=== PATIENT | male | born 1985 | race Caucasian/White ===

== ENCOUNTER 2017-11-08 12:39 | Emergency (ER) | payer OTHER ==
[~2017-11-08] VITALS: Ht 185.4 cm; Wt 77.1 kg
[2017-11-08 12:50] VITALS: BP 123/72
--- NOTE | 2017-11-08 14:40 | RADIOLOGY REPORT ---
EXAMINATION: XR ANKLE, LEFT CLINICAL INFORMATION: Pain. COMPARISON: None TECHNIQUE: AP, lateral, and mortise views of the left ankle. FINDINGS: There is no acute fracture or dislocation. The ankle mortise is congruent. Ankle joint effusion likely present. Lateral soft tissue swelling. IMPRESSION: Lateral soft tissue swelling with ankle joint effusion. No acute fracture or malalignment.
--- NOTE | 2017-11-08 16:20 | ED GENERAL ADULT ---
History of Present Illness General Chief Complaint: Foot or Ankle Injury Stated Complaint: LEFT ANKLE INJURY Source: patient Exam Limitations: no limitations Vital Signs & Intake/Output Vital Signs & Intake/Output Vital Signs Date Time Temp Pulse Resp B/P B/P Pulse O2 O2 Flow FiO2 Mean Ox Delivery Rate 11/08 1542 97.2 11/08 1250 97.2 103 20 123/72 96 Room Air Allergies Coded Allergies: NO KNOWN ALLERGIES (03/16/16) Reconcile Medications Ibuprofen 800 MG TABLET 1 TAB PO TID PRN pain Triage Note: PT TO ED C/O LEFT ANKLE PAIN S/P ROLLING IT THIS AM. PAIN IS WORSE WITH WEIGHT BEARING. DECLINING MEDS IN TRIAGE. PT AMBULATED IN AND OUT OF TRIAGE. NO OBVIOUS DEFORMATY NOTED. Triage Nurses Notes Reviewed? yes Onset: Abrupt Duration: hour(s): Timing: single episode today HPI: 32 y/o male with a h/o bipolar disorder presenting with left ankle pain over the past several hours. Reports he was standing on a cider block and fell off. Landed on inverted ankle. Did not completely fall, was able to catch himself. Denies head strike. No numbness or paresthesias. (Neetu Bucio) Past History Travel History Traveled to [place] past 21 day No Medical History Any Pertinent Medical History? 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 No (Neetu Bucio) Review of Systems Review of Systems Constitutional: Reports: no symptoms. EENTM: Reports: no symptoms. Respiratory: Reports: no symptoms. Cardiovascular: Reports: no symptoms. GI: Reports: no symptoms. Genitourinary: Reports: no symptoms. Musculoskeletal: Reports: see HPI. Skin: Reports: no symptoms. Neurological/Psychological: Reports: no symptoms. Hematologic/Endocrine: Reports: no symptoms. Immunologic/Allergic: Reports: no symptoms. (Neetu Bucio) Physical Exam Physical Exam General Appearance: well developed/nourished, no apparent distress, alert, awake , comfortable Head: atraumatic, normal appearance Eyes: Bilateral: normal appearance. Neck: normal inspection, full range of motion, no midline tenderness Respiratory: normal breath sounds, chest non-tender, lungs clear Cardiovascular: regular rate/rhythm Gastrointestinal: soft, non-tender Back: normal inspection, normal range of motion, no vertebral tenderness Extremities: swelling, tenderness, on exam of the left ankle there is diffuse edema with TTP over the lateral aspect. Decreased ROM. Sensation intact. Decreased motor strength. DP and PT pulses 2+. Able to bear weight and ambulate, but ambulates with a limp favoring the right side. Neurologic/Psych: awake, alert, oriented x 3, normal mood/affect Skin: intact, normal color, warm/dry Core Measures ACS in differential dx? No CVA/TIA Diagnosis: No Sepsis Present: No Sepsis Focused Exam Completed? No (Neetu Bucio) Progress Differential Diagnoses I considered the following diagnoses in my evaluation of the patient: [ankle sprain vs contusion vs fx vs dislocation ] Plan of Care: Orders Procedure Date/time Status Durable Medical Equipment 11/08 1615 Active X-ray unremarkable. Likely with sprain. Placed in air cast. Rx ibuprofen for pain. Counseled on supportive care, will f/u with ortho, given strict return precautions. Initial ED EKG: none (Neetu Bucio) Departure Departure Disposition: HOME OR SELF CARE Condition: Stable Clinical Impression Primary Impression: Left ankle sprain Referrals: Cary HECTOR,Trever Crocker MD,Arely (PCP/Family) Additional Instructions: Wear the air cast for stability. Use ibuprofen as needed for pain. Apply ice to help with swelling. Follow up with orthopedics for re-evaluation. Return to the emergency department for any new or worsening symptoms. Departure Forms: Customer Survey General Discharge Information Prescriptions: Current Visit Scripts Ibuprofen 1 TAB PO TID PRN pain #60 TAB (Neetu Bucio) PA/PURCHASING DEPARTMENT CLERK Co-Sign Statement Statement: ED Attending supervision documentation- I saw and evaluated the patient. I have also reviewed all the pertinent lab results and diagnostic results. I agree with the findings and the plan of care as documented in the PA's/PURCHASING DEPARTMENT CLERK's documentation. x I have reviewed the ED Record and agree with the PA's/PURCHASING DEPARTMENT CLERK's documentation. [] Additions or exceptions (if any) to the PAs/PURCHASING DEPARTMENT CLERK's note and plan are summarized below: [] (Clara HECTOR,José Miguel) Critical Care Note Critical Care Note Critical Care Time: non-applicable (Tracey BATISTA,Neetu)
[2017-11-08] MEDS ORDERED: IBUPROFEN800 M1 PO (16:21)
== END 2017-11-08 16:30 ==
LOC: ERH 12:39
DX: S93.402A Sprain of unspecified ligament of left ankle, initial encounter (principal); W17.89XA Other fall from one level to another, initial encounter; Y92.9 Unspecified place or not applicable; Y93.9 Activity, unspecified
CPT/HCPCS: 73610-LT

== ENCOUNTER 2018-01-27 18:36 | Emergency (ER) | payer OTHER ==
[~2018-01-27 18:36] MED LIST: IBUPROFEN800 M1 PO
--- NOTE | 2018-01-27 18:58 | ED AMS/SEIZURE/WEAK/DIZZY ---
History of Present Illness General Chief Complaint: ETOH/Drug Related Complaint Stated Complaint: BIBA OVERDOSE Source: EMS Exam Limitations: unable to give history, clinical condition Vital Signs & Intake/Output Vital Signs & Intake/Output Vital Signs Date Time Temp Pulse Resp B/P B/P Pulse O2 O2 Flow FiO2 Mean Ox Delivery Rate 01/27 2058 98.7 64 20 114/61 100 Room Air 01/27 1854 34 100% 01/27 1839 98.3 78 20 135/86 100 Nasal 6.0L Cannula Allergies Coded Allergies: NO KNOWN ALLERGIES (03/16/16) Triage Note: PT BROUGHT BY FRIEND TO ED S/P OD ON HEROIN. PT UNRESPONSIVE AND IN RESPIRATORY ARREST. EMS THAT WAS OUTSIDE ER GAVE A TOTAL OF 4MG INTRANASAL NARCAN WITH NO EFFECT THEY WERE BRINGING HIM IN WHILE BAGGING. MD TO BEDSIDE IMMIDIATELY. O2 SAT LOW OF 34%. IV ACCESS X2 ESTABLISHED IMMIDIATELY. 2MG IV NARCAN GIVEN WITH IMMIDIATE EFFECT. O2 SAT INCREASED TO 96% ON 6L. PT NOW ALERT AND ORIENTED STATING HE ALSO TOOK XANAX 1MG THIS MORNING. Triage Nurses Notes Reviewed? yes HPI: Patient presents for evaluation of unresponsiveness after use of IV heroin. Patient was dropped off at the emergency department by friends. Fortunately an EMS crew was outside in the administered intranasal Narcan and assisted with bagging the patient until he could be placed in an emergency department treatment room. (Bisi HECTOR,Duarte Clifton) Reconcile Medications Ibuprofen 800 MG TABLET 1 TAB PO TID PRN pain Naloxone HCl (Narcan) 4 MG/ACTUATION SPRAY 1 SPRAY NASB PRN PRN overdose (Clara HECTOR,José Miguel) Past History Travel History Traveled to [place] past 21 day No Medical History Any Pertinent Medical History? 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 No (Bisi HECTOR,Duarte Clifton) Review of Systems Review of Systems Constitutional: Reports: no symptoms. EENTM: Reports: no symptoms. Respiratory: Reports: no symptoms. Cardiovascular: Reports: no symptoms. GI: Reports: no symptoms. Genitourinary: Reports: no symptoms. Musculoskeletal: Reports: no symptoms. Skin: Reports: no symptoms. Neurological/Psychological: Reports: no symptoms. Hematologic/Endocrine: Reports: no symptoms. Immunologic/Allergic: Reports: no symptoms. All Other Systems: Reviewed and Negative Comments Patient unable to provide review of systems (Bisi HECTOR,Duarte Clifton) Physical Exam Physical Exam General Appearance: SEE BELOW Comments: Gen.: Well-nourished, well-developed, unresponsive Head: Normocephalic, atraumatic. Eyes: Small symmetrical pupils Ears: Normal inspection bilaterally Nose: Normal inspection Throat/mouth : Tacky mucosa Neck: Supple, no signs of trauma, no apparent goiter Heart: Regular rate and rhythm, no murmurs rubs or gallops Lungs: No spontaneous respirations, faint air entry with bagged ventilations Chest: Poor chest excursion Back: Normal range of motion Abdomen: Soft, nondistended Extremities: No spontaneous movements Neurologic: Unable to assess Skin: warm and dry Psychiatric: Unable to assess Core Measures ACS in differential dx? No CVA/TIA Diagnosis No Sepsis Present: No Sepsis Focused Exam Completed? No (Bisi HECTOR,Duarte Clifton) Progress Differential Diagnosis: alcohol intoxication, dehydration, electrolyte imbalance , hypoglycemia, hypoxia, drug overdose Plan of Care: Orders Procedure Date/time Status Telemetry/Trainer 01/27 1857 Active URINE DRUG SCREEN FOR ER ONLY 01/27 1857 Complete ACETOMINOPHEN 01/27 1857 Complete SALICYLATE 01/27 1857 Complete ETHANOL 01/27 1857 Complete COMPREHENSIVE METABOLIC PANEL 01/27 1857 Complete CBC WITHOUT DIFFERENTIAL 01/27 1857 Complete EKG 01/27 1857 Active Laboratory Tests 01/27/182044: Urine Opiates Screen 111, Methadone Screen < 40, Barbiturate Screen < 60, Ur Phencyclidine Scrn < 6.00, Amphetamines Screen 113, U Benzodiazepines Scrn > 800 H, Urine Cocaine Screen < 50, Urine Cannabis Screen > 80.00 H 01/27/181926: Anion Gap 10, Estimated GFR > 60, BUN/Creatinine Ratio 14.4, Glucose 151 H, Calcium 9.0, Total Bilirubin 0.9, AST 23, ALT 31, Alkaline Phosphatase 45, Total Protein 7.0, Albumin 4.5, Globulin 2.5, Albumin/Globulin Ratio 1.8, CBC w Diff NO MAN DIFF REQ, RBC 4.83, MCV 94.2 H, MCH 32.8 H, MCHC 34.8, RDW 12.5, MPV 8.3, Gran % 56.1, Lymphocytes % 38.2, Monocytes % 5.0, Eosinophils % 0.4, Basophils % 0.3, Absolute Granulocytes 7.4 H, Absolute Lymphocytes 5.1 H, Absolute Monocytes 0.7 H, Absolute Eosinophils 0.1, Absolute Basophils 0, Salicylates < 1.0, Acetaminophen < 10.0 L, Serum Alcohol < 10.0 Initial ED EKG: signed out to Dr. Elizabeth Comments: 01/27/2018 6:53:46 PM patient's pulse ox initially was 34% although this began to improve with bagged ventilations and 100% oxygen. IV was established and patient treated with 2 mg of IV Narcan with prompt improvement in his overall clinical condition. He began breathing on his own and responded to tactile stimuli. Oxygen saturation increased to 98%. 01/27/2018 7:21:44 PM patient signed out to Dr. Elizabeth at shift bladder changer. (Bisi HECTOR,Duarte Clifton) Comments: Declines to speak to crisis concerning overdose. Made aware of risk and complications and he accepts and acknowledges. (José Miguel Elizabeth MD) Departure Departure Condition: Stable Clinical Impression Primary Impression: Heroin overdose Referrals: Arely Crocker MD (PCP/Family) (Bisi HECTOR,Duarte Clifton) Departure Time of Disposition: 2238 Disposition: LEFT AGAINST MEDICAL ADVICE Departure Forms: DETOX FACILITIES LIST General Discharge Information Prescriptions: Current Visit Scripts Naloxone HCl (Narcan) 1 SPRAY NASB PRN PRN overdose #1 SPRAY (José Miguel Elizabeth MD)
[2018-01-27 19:38] LABS: ABSOLUTE BASOPHIL COUNT 0 /CUMM (0.0-0.2); ABSOLUTE EOSINOPHIL COUNT 0.1 /CUMM (0.0-0.7); ABSOLUTE GRANULOCYTE CT 7.4 /CUMM (1.4-6.5); ABSOLUTE LYMPH COUNT 5.1 /CUMM (1.2-3.4); ABSOLUTE MONOCYTE COUNT 0.7 /CUMM (0.10-0.60); BASOPHIL % 0.3 % (0.0-2.0); EOSINOPHIL % 0.4 % (0-5); GRANULOCYTE % 56.1 % (42.2-75.2); HEMATOCRIT 45.5 % (42-52); MEAN CORPUSCULAR HGB 32.8 PG (27.0-31.0); MEAN CORPUSCULAR HGB CONC 34.8 G/DL (33.0-37.0); MEAN CORPUSCULAR VOLUME 94.2 FL (80.0-94.0); MEAN PLATELET VOLUME 8.3 FL (7.4-10.4); PLATELET COUNT 265 /CUMM (130-400); RBC DISTRIBUTION WIDTH 12.5 % (11.5-14.5); RED BLOOD CELL CT 4.83 /CUMM (4.70-6.10); WHITE BLOOD CELL COUNT 13.3 /CUMM (4.8-10.8)
[2018-01-27] MEDS ORDERED: NARCAN4 MG NASB (22:40)
[2018-01-27 22:46] VITALS: BP 119/61
== END 2018-01-27 22:49 | disposition left against medical advice (07) ==
LOC: ERH 18:36
PROVIDERS: Emergency Medicine
DX: T40.601A Poisoning by unspecified narcotics, accidental (unintentional), initial encounter (principal); F17.210 Nicotine dependence, cigarettes, uncomplicated; F31.9 Bipolar disorder, unspecified
CPT/HCPCS: 1387; 80307; 93005; 93010; 94799; 96374; G0480